=== PATIENT | female | born 1985 | race Caucasian/White ===

== ENCOUNTER 2020-11-15 12:54 | Emergency (ER) | payer MEDICAID, OTHER ==
[~2020-11-15] VITALS: Ht 170.2 cm; Wt 109.1 kg
[2020-11-15 13:07] VITALS: BP 134/75
== END 2020-11-15 14:05 | disposition home or self-care (01) ==
LOC: EMS 12:54
DX: R20.2 Paresthesia of skin (principal); M25.512 Pain in left shoulder; F17.210 Nicotine dependence, cigarettes, uncomplicated; F12.90 Cannabis use, unspecified, uncomplicated